=== PATIENT | male | born 1950 | race Caucasian/White ===

== ENCOUNTER → 2016-09-28 | Outpatient (CLI) | payer OTHER ==
[2016-09-28 17:23] LABS: HEMOGLOBIN 15.3 gm/dl (14.0-17.5); RED BLOOD COUNT 5.12 M/UL (4.20-5.50); WHITE BLOOD COUNT 5.7 K/UL (4.5-11.0)
== END ==
LOC: LAB 16:57
PROVIDERS: Internal Medicine
DX: I10 Essential (primary) hypertension (principal)
CPT/HCPCS: 80048; 80061; 80076; 84402; 84403; 84443; 85025

== ENCOUNTER → 2016-10-04 | Outpatient (CLI) | payer OTHER | LOC: US 09:50 | DX: R79.89 Other specified abnormal findings of blood chemistry (principal); I10 Essential (primary) hypertension ==

== ENCOUNTER → 2020-05-27 | Outpatient (CLI) | payer BC, OTHER | LOC: RAD 15:44 | DX: M54.2 Cervicalgia (principal); M47.812 Spondylosis without myelopathy or radiculopathy, cervical region; M48.02 Spinal stenosis, cervical region | CPT/HCPCS: 72050 ==

== ENCOUNTER → 2021-04-14 | Outpatient (CLI) | payer BC, OTHER ==
[~2021-04-14] VITALS: Ht 185.4 cm; Wt 100.2 kg
== END ==
LOC: EROP 13:11
DX: U07.1 COVID-19 (principal); Z23 Encounter for immunization
CPT/HCPCS: 96365